=== PATIENT | male | born 1950 | race Caucasian/White ===

== ENCOUNTER 2025-02-03 17:28 | Inpatient (IN) | payer MEDICARE, BC, SELFPAY ==
[2025-02-03] VITALS (8 sets, daily range): BP systolic 161–189; BP diastolic 76–99; PULSE 58–84; RESP 12–18; TEMP 36.3–36.8; O2SAT 91–98; BMI 27.1
--- NOTE | 2025-02-03 17:35 | CTR_ITS ---
PROCEDURE INFORMATION: Exam: CT Head Without Contrast Exam date and time: 02/03/2025 5:48 PM Age: 74 years old Clinical indication: Stroke-like symptoms; Dizziness/giddiness; Additional info: Symptoms of acute stroke TECHNIQUE: Imaging protocol: Computed tomography of the head without contrast. Radiation optimization: All CT scans at this facility use at least one of these dose optimization techniques: automated exposure control; mA and/or kV adjustment per patient size (includes targeted exams where dose is matched to clinical indication); or iterative reconstruction. Other technique: STROKE PROTOCOL was implemented. COMPARISON: No relevant prior studies available. RADIATION DOSE METRICS: Total DLP (mGy-cm): 1120.4 FINDINGS: Brain: Age-related brain parenchymal atrophy. Areas of hypoattenuation in the periventricular and subcortical deep white matter likely on the basis of chronic microvascular ischemic changes. No acute intra cranial hemorrhage. No mass effect or midline shift. No definitive CT evidence of acute territorial infarction. 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 Cerebral ventricles: No ventriculomegaly. Paranasal sinuses: Visualized sinuses are unremarkable. No fluid levels. Mastoid air cells: Visualized mastoid air cells are well aerated. Bones: Intact calvarium. Soft tissues: Unremarkable. CT/CT head thrombolytic [id number] IMPRESSION: No acute intracranial abnormality. Senescent changes. ASSESSMENT: ASPECTS ([place] Stroke Program Early CT Score) is 10.
--- NOTE | 2025-02-03 17:35 | CTR_ITS ---
PROCEDURE INFORMATION: Exam: CTA Head With Contrast, Arteriography Exam date and time: 02/03/2025 5:48 PM Age: 74 years old Clinical indication: Dizziness and giddiness; Additional info: CVA TECHNIQUE: Imaging protocol: Computed tomographic angiography of the head with contrast. Exam focused on the arteries. 3D rendering (Not supervised by radiologist): MIP and/or 3D reconstructed images were created by the technologist. Radiation optimization: All CT scans at this facility use at least one of these dose optimization techniques: automated exposure control; mA and/or kV adjustment per patient size (includes targeted exams where dose is matched to clinical indication); or iterative reconstruction. Contrast material: OMNIPAQUE 350; Contrast volume: 100 ml; Contrast route: INTRAVENOUS (IV); COMPARISON: CT head thrombolytic [id number] 02/03/2025 5:48 PM RADIATION DOSE METRICS: Total DLP (mGy-cm): 759.5 FINDINGS: ANTERIOR CIRCULATION: Right internal carotid artery: Intracranial segment is patent with no significant stenosis. No aneurysm. Right middle cerebral artery: No occlusion or significant stenosis. No aneurysm. Right anterior cerebral artery: No occlusion or significant stenosis. No aneurysm. Left internal carotid artery: Intracranial segment is patent with no significant stenosis. No aneurysm. Left middle cerebral artery: No occlusion or significant stenosis. No aneurysm. Left anterior cerebral artery: No occlusion or significant stenosis. No aneurysm. POSTERIOR CIRCULATION: Right vertebral artery: No occlusion or significant stenosis. No aneurysm. Left vertebral artery: No occlusion or significant stenosis. No aneurysm. Basilar artery: No occlusion or significant stenosis. No aneurysm. Right posterior cerebral artery: There is a moderate to severe stenosis involving the right P1 segment of the right [employer]SH[employer] PROGRAM DIRECTOR. There is a moderate stenosis involving the right distal [employer] PROGRAM DIRECTOR Left posterior cerebral artery: No occlusion or significant stenosis. No aneurysm. Brain: No definite mass, mass effect, or midline shift. Cerebral ventricles: No ventriculomegaly. Bones/joints: Unremarkable. No acute fracture. Soft tissues: Unremarkable. PROCEDURE INFORMATION: Exam: CTA Neck With Contrast Exam date and time: 02/03/2025 5:48 PM Age: 74 years old Clinical indication: Dizziness and giddiness; Additional info: CVA TECHNIQUE: Imaging protocol: Computed tomographic angiography of the neck with contrast. Exam focused on the cervical segments of the vasculature. 3D rendering (Not supervised by radiologist): MIP and/or 3D reconstructed images were created by the technologist. Radiation optimization: All CT scans at this facility use at least one of these dose optimization techniques: automated exposure control; mA and/or kV adjustment per patient size (includes targeted exams where dose is matched to clinical indication); or iterative reconstruction. Contrast material: OMNIPAQUE 350; Contrast volume: 100 ml; Contrast route: INTRAVENOUS (IV); COMPARISON: CT head thrombolytic [id number] 02/03/2025 5:48 PM RADIATION DOSE METRICS: Total DLP (mGy-cm): 759.5 FINDINGS: Right common carotid artery: Proximally 50-60% stenosis involving the right distal common carotid artery. Right internal carotid artery: No stenosis of the extracranial segment. No dissection or occlusion. Right external carotid artery: No occlusion or stenosis of the origin. Left common carotid artery: Approximately 40-50% stenosis involving the left distal common carotid artery. Left internal carotid artery: No stenosis of the extracranial segment. No dissection or occlusion. Left external carotid artery: No occlusion or stenosis of the origin. Right vertebral artery: The right vertebral artery is hypoplastic and terminates at the level of the right PICA. Left vertebral artery: High-grade stenosis involving the left V4 segment of the left vertebral artery. Other arteries: Evaluation of the arteries limited by venous contamination and poor arterial phase imaging. Soft tissues: Normal. No significant soft tissue swelling. Bones/joints: Extensive degenerative changes involve the spine. There is mild anterolisthesis of C3 in respect to C4 secondary to facet arthropathy. There is extensive anterior and posterior osteophyte formation throughout the cervical spine. Diffuse facet arthropathy. Lungs: There are patchy ground-glass opacities involving the visualized portions of the right upper lobe. Esophagus: There is abnormal wall thickening involving the visualized proximal esophagus. CT/CT angio headneck* [id number] IMPRESSION: Moderate to severe stenosis involving the right P1 segment of the right [employer] PROGRAM DIRECTOR. There is a moderate stenosis involving the right distal [employer]SHIP PROGRAM DIRECTOR. IMPRESSION: 1. Moderate stenosis involving the distal right common carotid artery. 2. Mild stenosis involving the left distal common carotid artery. 3. Patchy ground-glass opacities present in the right upper lobe likely infectious or inflammatory in etiology. 4. Proximal esophageal wall thickening present. Clinical correlation for esophagitis recommended REFERENCES: NASCET CRITERIA. The degree of stenosis in the cervical segment of the internal carotid artery is based on NASCET criteria. Normal is no stenosis. Mild is less than 50% stenosis. Moderate is 50-69% stenosis. Severe is 70% to 99% stenosis. Total occlusion is no detectable patent lumen.
--- NOTE | 2025-02-03 17:36 | ECG_ITS ---
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 Measurements Intervals Valentines Rate: 53 P: 55 IA: 180 QRS: 59 QRSD: 104 T: 136 QT: 462 QTc: 434 Interpretive Statements SINUS BRADYCARDIA NONSPECIFIC ST & T-WAVE ABNORMALITY No previous ECG available for comparison Electronically Signed On 02-03-2025 21:29:51 CDT by Jey Swan M.D. [email or web address]
--- NOTE | 2025-02-03 17:36 | W.ED.DIZZY ---
HPI - Dizziness General: Chief Complaint: Dizziness Stated Complaint: weakness Time Seen by Provider: 02/03/25 17:29 Source: patient and EMS Mode of arrival: EMS Limitations: no limitations History of Present Illness: HPI Narrative: 74-year-old male states that he started having dizziness at 10 AM he states that the room has been spinning he has not really been able to walk due to severe dizziness he has also had some nausea and vomiting with that denies any history of stroke or vertigo in the past denies headache or chest pain. Associated symptoms: Reports nausea; Denies chest pain, chills or headache(s) Related Data Allergies Allergy/AdvReac Type Severity Reaction Status Date / Time No Known Allergies Allergy Verified 02/03/25 17:35 Review of Systems Const: Denies: fever(s), chills, body aches or change in appetite Eyes: Denies: blurry vision or eye discomfort ENMT: Denies: throat pain or dental pain Card: Denies: chest pain Resp: Denies: dyspnea GI: Reports: nausea; Denies: abdominal pain or diarrhea Musc: Denies: neck pain or back pain Skin/Breast: Denies: rash Neuro: Reports: vertigo; Denies: headache(s) Physical Exam Const: COMMON NORMALS: patient oriented x3 HENMT: COMMON NORMALS: normocephalic and atraumatic HEAD & SCALP: normocephalic and atraumatic Eye: COMMON NORMALS: Equal, round and reactive pupils present and EOMs intact bilaterally PUPIL: Yes Equal, round and reactive pupils present OTHER: nystagmus when looking right Neck/C-Spine: COMMON NORMALS: full ROM and supple Chest: COMMONS NORMALS: normal inspection of the chest Resp: COMMON NORMALS: normal respiratory effort, No retractions, No use of accessory muscles and clear to auscultation bilaterally AUSCULTATION: clear to auscultation bilaterally Cardio: COMMON NORMALS: regular rate, regular rhythm and No murmurs present (Cardio) RATE: regular rate RHYTHM: regular rhythm GI: COMMON NORMALS: Normal to inspection, nondistended, normoactive bowel sounds present, Soft to palpation, non-tender and no masses PALPATION: Yes Soft to palpation Extremity: COMMON NORMALS: normal to inspection and full ROM Neuro: COMMON NORMALS: patient oriented x3, moves all extremities and no focal motor deficits CRANIAL NERVES: Yes CN normal except as noted SPEECH: speech normal GAIT: Yes Ataxic gait present MOTOR EXAM: 5/5 motor strength present throughout Psych: COMMON NORMALS: mental status grossly normal, Normal thought process present and cooperative THOUGHT PROCESS: Normal thought process present Skin: COMMON NORMALS: no rashes or lesions noted and no wounds GENERAL SKIN EXAM: no rashes or lesions noted Course Vital Signs: Vital signs: Vital Signs Temperature 98.3 F 02/03/25 17:31 Pulse Rate 81 02/03/25 19:04 Respiratory Rate 16 02/03/25 17:31 Blood Pressure 172/93 02/03/25 19:04 Pulse Oximetry 91 02/03/25 19:04 Oxygen Delivery Me thod Room Air 02/03/25 19:04 MDM - Dizziness Medical Decision Making Patient presents here with vertigo symptoms have not improved here is quite ataxic CT along with CTA are normal his last known well was 10 AM he is not a candidate for lytics due to timing. Will admit at this time for his vertigo to rule out a posterior stroke Medical Records I reviewed the patient's medical records. Lab Data I reviewed the patient's lab results. 02/03/25 17:42 02/03/25 17:[address] 02/03/25 17:35 IMPRESSION: No acute intracranial abnormality. Senescent changes. ASSESSMENT: ASPECTS ([place] Stroke Program Early CT Score) is 10. ADDENDUM: 02/03/25 1812 THIS REPORT CONTAINS FINDINGS THAT MAY BE CRITICAL TO PATIENT CARE. The findings were verbally communicated via telephone conference with ZACHARY ROBLERO at 6:11 PM CDT on 02/03/2025. The findings were acknowledged and understood. ADDENDUM: 02/03/25 1834 The sagittal reconstructions were reviewed. Chest X-Ray 02/03/25 18:06 IMPRESSION: No acute findings. Laboratory Results WBC 12.00 10^3/uL (3.29-11.43) H 02/03/25 17:42 RBC 4.72 10^6/uL (3.85-5.65) 02/03/25 17:42 Hgb 14.40 g/dL (11.27-16.99) 02/03/25 17:42 Hct 42.7 % (37-53) 02/03/25 17:42 MCV 90.5 fl (82-101) 02/03/25 17:42 MCH 30.5 pg (27-33) 02/03/25 17:42 MCHC 33.7 g/dL (30-55) 02/03/25 17:42 RDW 11.5 % (12.1-15.1) L 02/03/25 17:42 Plt Count 180 10^3/cmm (157-399) 02/03/25 17:42 MPV 10.0 fL (7.4-10.4) 02/03/25 17:42 Neut % (Auto) 88.9 % 02/03/25 17:42 Lymph % (Auto) 6.9 % 02/03/25 17:42 [place] % (Auto) 3.6 % 02/03/25 17:42 Eos % (Auto) 0.0 % 02/03/25 17:42 Baso % (Auto) 0.3 % 02/03/25 17: Neut # (Auto) 10.66 10^3/uL (1.8-7.7) H 02/03/25 17:42 Lymph # (Auto) 0.8 10^3/uL (0.8-4.8) 02/03/25 17:42 [place] # (Auto) 0.4 10^3/uL (0.2-0.9) 02/03/25 17:42 Eos # (Auto) 0.0 10^3/uL (0.0-0.8) 02/03/25 17:42 Baso # (Auto) 0.0 10^3/uL (0.0-0.1) 02/03/25 17: Nucleated RBC % (auto) 0 % 02/03/25 17: Nucleated RBCs # 0.0 /100WBC 02/03/25 17:42 PT 13.10 SECONDS (12.1-14.9) 02/03/25 17:42 INR 0.93 (0.8-1.2) 02/03/25 17:42 APTT 24.8 SECONDS (23.9-36.7) 02/03/25 17:42 Sodium 138 mmol/L (136-145) 02/03/25 17:42 Potassium 4.4 mmol/L (3.5-5.1) 02/03/25 17:42 Chloride 102 mmol/L (98-107) 02/03/25 17:42 Carbon Dioxide 23 mmol/L (22-29) 02/03/25 17:42 Anion Gap 17.4 (5-19) 02/03/25 17:42 BUN 14 mg/dL (8-23) 02/03/25 17:42 Creatinine 0.6 mg/dL (0.7-1.2) L 02/03/25 17:42 GFR Calculation Not Reportable 02/03/25 17:42 Glucose 200 mg/dL (65-115) H 02/03/25 17:42 POC Glucose 194 mg/dL (70-110) H 02/03/25 17:40 Calculated Osmolality 292 mOsm/kg (285-295) 02/03/25 17:42 Calcium 9.4 mg/dL (8.5-10.5) 02/03/25 17:42 Total Bilirubin 0.7 mg/dL (0.15-1.2) 02/03/25 17:42 AST 19 U/L (0-40) 02/03/25 17:42 ALT 11 U/L (0-41) 02/03/25 17:42 Alkaline Phosphatase 75 U/L (40-130) 02/03/25 17:42 Total Protein 7.3 g/dL (6.6-8.7) 02/03/25 17:42 Albumin 4.0 g/dL (3.5-5.2) 02/03/25 17:42 Globulin 3.3 g/dL (1.3-4.6) 02/03/25 17:42 Urine Color Yellow (Yellow) 02/03/25 18:30 Urine Appearance Clear (CLEAR) 02/03/25 18:30 Urine pH 7 (5-7) 02/03/25 18:30 Ur Specific [place] 1.010 (1.005-1.030) 02/03/25 18:30 Urine Protein 1+ (Negative) H 02/03/25 18:30 Urine Glucose (UA) 1+ (Normal) H 02/03/25 18:30 Urine Ketones Negative (Negative) 02/03/25 18:30 Urine Blood Neg (Negative) 02/03/25 18:30 Urine Nitrate Negative (Negative) 02/03/25 18:30 Urine Bilirubin Neg (Negative) 02/03/25 18:30 Urine Urobilinogen Norm mg/dL (Negative) 02/03/25 18:30 Ur Leukocyte Esterase Negative (Negative) 02/03/25 18:30 Urine RBC 0-2 /hpf (0-2) 02/03/25 18:30 Urine WBC 11-20 /hpf (0-5) H 02/03/25 18:30 Ur Squamous Epith Cells 0-5 /hpf (0-5) 02/03/25 18:30 Amorphous Sediment Not Reportable 02/03/25 18:30 Urine Bacteria None seen /hpf (NONE) 02/03/25 18:30 Hyaline Casts 0.40 /lpf 02/03/25 18:30 Urine Opiates Screen Negative ng/mL (Negative) 02/03/25 18:30 Ur Barbiturates Screen Negative ng/mL (Negative) 02/03/25 18:30 Ur Phencyclidine Scrn Negative ng/mL (Negative) 02/03/25 18:30 Ur Amphetamines Screen Negative ng/mL (Negative) 02/03/25 18:30 U Benzodiazepines Scrn Negative ng/mL (Negative) 02/03/25 18:30 Urine Cocaine Screen Negative ng/mL (Negative) 02/03/25 18:30 U Marijuana (THC) Screen Negative ng/mL (Negative) 02/03/25 18:30 All radiology interpretation(s) finalized by discharge EKG Data EKG 1: I personally reviewed and interpreted this EKG as follows: EKG interpretation date: 02/03/25 EKG interpretation time: 17:36 Interpretation: sinus kari hr [address] elevation qrs 104 qtc 444 Discharge Plan Discharge Condition: Stable Print Language: Pakistani Coding Level of Care Code ED Stockroom Associate for g Fwd NIH stroke score NIHSS Level Of Consciousness - 1a: 0 Level Of Consciousness Questions - 1b: Both Correct Level Of Consciousness Commands - 1c: Both Correct Best Gaze - 2: Normal Visual Moralez - 3: No Visual Loss Facial Palsy - 4: Normal Motor Arm Right - 5: No Drift Motor Arm Left - 5: No Drift Motor Leg Right - 6: No Drift Motor Leg Left - 6: No Drift Limb Ataxia - 7: Present In One Limb Sensory - 8: Normal Best Language - 9: No Aphasia Dysarthia - 10: Normal Extinction And Inattention - 11: 0 Score Total Score: 1
[2025-02-03 17:44] LABS: Glucose Point of Care 194 mg/dL (70-110)
[2025-02-03 17:48] LABS: Basophils % 0.3 %; Hematocrit 42.7 % (37-53); Lymphocytes # 0.8 10^3/uL (0.8-4.8); Lymphocytes % 6.9 %; Mean Corpuscular HGB Conc 33.7 g/dL (30-55); Mean Corpuscular Hemoglobin 30.5 pg (27-33); Mean Corpuscular Volume 90.5 fl (82-101); Monocytes # 0.4 10^3/uL (0.2-0.9); Monocytes % 3.6 %; Neutrophils # 10.66 10^3/uL (1.8-7.7); Neutrophils % 88.9 %; Nucleated Red Blood Cells % 0 %; Platelet Count 180 10^3/cmm (157-399); Red Blood Count 4.72 10^6/uL (3.85-5.65); Red Cell Distribution Width 11.5 % (12.1-15.1)
--- NOTE | 2025-02-03 17:53 | PC.NURSE ---
PT FSBS 194.
[2025-02-03 18:02] LABS: INR 0.93 (0.8-1.2)
[2025-02-03] MEDS: iohexol 350 mg/mL 500 mL Btl (per mL) IV (18:02)
[2025-02-03 18:03] LABS: Partial Thromboplastin Time 24.8 SECONDS (23.9-36.7)
[2025-02-03 18:06] LABS: Alanine Aminotransferase 11 U/L (0-41); Alkaline Phosphatase 75 U/L (40-130); Blood Urea Nitrogen 14 mg/dL (8-23); Calcium 9.4 mg/dL (8.5-10.5); Carbon Dioxide 23 mmol/L (22-29); Chloride 102 mmol/L (98-107); Creatinine Clr Calc Pharmacy 92.3088; Globulin 3.3 g/dL (1.3-4.6); Glucose 200 mg/dL (65-115); Osmolality Calculated 292 mOsm/kg (285-295); Sodium 138 mmol/L (136-145); Total Bilirubin 0.7 mg/dL (0.15-1.2); Total Protein 7.3 g/dL (6.6-8.7)
--- NOTE | 2025-02-03 18:06 | XRR_ITS ---
PROCEDURE INFORMATION: Exam: XR Chest Exam date and time: 02/03/2025 6:13 PM Age: 74 years old Clinical indication: Other: Dizzy TECHNIQUE: Imaging protocol: Radiologic exam of the chest. Views: 1 view. COMPARISON: CT angio headneck* [id number] 02/03/2025 5:48 PM FINDINGS: Lungs: Unremarkable. No consolidation. Pleural spaces: Unremarkable. No pleural effusion. No pneumothorax. Heart/Mediastinum: Unremarkable. No cardiomegaly. Bones/joints: Unremarkable. XR/XR chest 1V portable [id number] IMPRESSION: No acute findings.
[2025-02-03] MEDS: ondansetron 2 mg/ML SDV 2 mL 4 MG IVP (18:11)
[2025-02-03] MEDS: meclizine 25 mg tablet 50 MG PO (18:11)
[2025-02-03 18:20] LABS: Anion Gap 17.4 (5-19); Aspartate Amino Transferase 19 U/L (0-40); Potassium 4.4 mmol/L (3.5-5.1)
[2025-02-03 18:40] LABS: Bacteria Urine None Seen /hpf; RBC Urine 0-2 /hpf (0-2); Squamous Epithelial Cell Urine 0-5 /hpf (0-5)
[2025-02-03] MEDS: diazePAM 2 mg Tablet PO (18:41)
[2025-02-03] MEDS: aspirin 81 mg Chew Tablet 324 MG PO (18:42)
[2025-02-03 18:44] LABS: Amphetamines Screen Urine Negative (Negative); Barbiturates Screen Urine Negative (Negative); Benzodiazepines Screen Urine Negative (Negative); Cocaine Screen Urine Negative (Negative); Opiate Screen Urine Negative (Negative); PCP Screen Urine Negative (Negative); THC Screen Urine Negative (Negative)
[2025-02-03 18:45] LABS: Add Urine Culture? No; Add Urine Microscopic? YES; Bilirubin Urine Neg (Negative); Blood Urine Neg (Negative); Glucose Urine UA 1+ (Normal); Ketones Urine Negative (Negative); Leukocyte Esterase Urine Negative (Negative); Nitrate Urine Negative (Negative); Protein Urine 1+ (Negative); Urine Appearance Clear (CLEAR); Urine Color Yellow (Yellow); Urobilinogen Urine Norm (Negative); pH Urine 7 (5-7)
--- NOTE | 2025-02-03 19:48 | P.HP_ITS ---
Providers/Chief Complaint 2 Chief Complaint: weakness History of Present Illness Carlos Cooper is a 74 year old male with a past medical history of hypertension, hyperlipidemia, GERD, history of TIA who presents [facility] for dizziness. Patient tells me that he is originally from [place], he is a solo truck driver, he was dropping off a load that about at 10 AM, he suddenly felt dizzy, he tells me that he was driving at the time, he pulled over the side of the road, denies any blurry vision, no nausea, no vomiting, did have a slight headache, no neck pain, no paresthesias, no focal weakness, no facial droop, no slurring of his words, he tells me he he was able to drop all of his load, but continued to have dizziness, so he came to the ER for evaluation, initial head CT no acute bleed, patient was out of the window for tPA, he continues to complain of dizziness, unsteadiness on his feet, no nausea, no vomiting, currently he is NIH stroke scale is 2, CTA head and neck CT/CT angio headneck* [id number] IMPRESSION: Moderate to severe stenosis involving the right P1 segment of the right [employer]TR[employer] OFFICE. There is a moderate stenosis involving the right distal [employer]ICE. IMPRESSION: 1. Moderate stenosis involving the distal right common carotid artery. 2. Mild stenosis involving the left distal common carotid artery. 3. Patchy ground-glass opacities present in the right upper lobe likely infectious or inflammatory in etiology. 4. Proximal esophageal wall thickening present. Clinical correlation for esophagitis recommended - Spoken to ER provider, Dr. Canas, speaking to [facility] neurology about CTA head and neck findings with patient symptomatology -Patient denies any dizziness upon changing head position, denies the room spinning around him, Review of Systems 2 Const: Denies: fever(s) or chills Eyes: Denies: change in vision or blurry vision Card: Denies: chest pain Resp: Denies: dyspnea GI: Denies: abdominal pain Neuro: Reports: headache(s), difficulty walking and dizziness; Denies: numbness in extremities, weakness in extremities, sensory changes, lack of coordination, frequent falls, vertigo, Slurred speech present, difficulty communicating thoughts, seizure-like activity or involuntary movements Endo: Denies: polyuria Medications/Allergies Allergies Allergy/AdvReac Type Severity Reaction Status Date / Time No Known Allergies Allergy Verified 02/03/25 17:35 PFSH Acute 2 PFSH: Medical History (Updated 02/03/25 @ 19:54 by Luaks Jean MD) HLD (hyperlipidemia) HTN (hypertension) with goal to be determined Social History (Updated 02/03/25 @ 19:53 by Lukas Jean MD) Smoking and tobacco/nicotine status: never used tobacco/nicotine Alcohol intake: never Substance/Drug Use: never Vitals/I&O/Wt Last Vital Signs Temp 98.3 F 02/03/25 17:31 Pulse 79 02/03/25 19:32 Resp 17 02/03/25 19:32 BP 166/99 02/03/25 19:32 Pulse Ox 98 02/03/25 19:32 O2 Del Method Room Air 02/03/25 19:32 Weight last 48 hrs Weight 88.451 kg Physical Exam 2 Const: COMMON NORMALS: no acute distress and patient oriented x3 HENMT: COMMON NORMALS: normocephalic HEAD & SCALP: normocephalic Neck/C-Spine: COMMON NORMALS: no JVD Resp: COMMON NORMALS: normal respiratory effort, No retractions, No use of accessory muscles and clear to auscultation bilaterally AUSCULTATION: clear to auscultation bilaterally Cardio: COMMON NORMALS: no JVD, regular rate, regular rhythm, S1 normal heart sound present and S2 normal heart sound present RATE: regular rate RHYTHM: regular rhythm HEART SOUNDS: S1 normal heart sound present and S2 normal heart sound present GI: COMMON NORMALS: Normal to inspection, nondistended, normoactive bowel sounds present, Soft to palpation and non-tender Extremity: COMMON NORMALS: no calf tenderness and no pedal edema Neuro: COMMON NORMALS: patient oriented x3, CN's II-XII intact bilaterally, moves all extremities and no focal motor deficits OTHER: Positive cerebellar signs Psych: COMMON NORMALS: mental status grossly normal Data 02/03/25 17:42 02/03/25 17:42 A&P Assessment and plan (1) Dizziness: Plan Dizziness - Concern for posterior circulation stroke - Other possibilities is benign positional vertigo, but dizziness is not associated with head position - CT head no acute findings - CTA head and neck CT/CT angio headneck* [id number] IMPRESSION: Moderate to severe stenosis involving the right P1 segment of the right [employer]ICE. There is a moderate stenosis involving the right distal [employer]. IMPRESSION: 1. Moderate stenosis involving the distal right common carotid artery. 2. Mild stenosis involving the left distal common carotid artery. 3. Patchy ground-glass opacities present in the right upper lobe likely infectious or inflammatory in etiology. 4. Proximal esophageal wall thickening present. Clinical correlation for esophagitis recommended -ER provider will discuss CTA head and neck findings with [facility] neurology Plan - Telemetry monitoring - Cardiac echo - PT OT - Speech therapy eval - Aspirin, statin -IV fluids - Will allow for permissive hypertension - MRI brain - Code, DNR, but okay with elective intubation if required - Lovenox for DVT prophylaxis PDMP PDMP Reviewed: Not Reviewed Attestations 2 Medical Necessity Statement*: Patient requires hospitalization, outpatient observation, for dizziness, concerns for posterior circulation stroke Coding Level of Care Code Acute Code for Chg Fwd Diagnoses Dizziness R42
--- NOTE | 2025-02-03 21:05 | PC.NURSE ---
patient come to floor from ER, patient stood up from chair, very unsteady on his feet. patient was soiled in urine. hospital gown put on and dirty clothes placed in a plastic bag. patient wallet, a black hair comb, 2 ink pens, $1.89 in change, $6 in one dollar bills, 2 $5 bills, 3 $20 bills, 2 $10 bills, 23 cards inside his wallet, some were buisness cards and the others were debit and credit cards. patient assessment done, bed alarm turned on because pateint states he will get up and go to the bathroom, nurse asked him not to get up on his own because he is very unsteady on his feet, he is admitted with vertigo. patient is alert and oriented.
[2025-02-03 21:35] LABS: Chol HDL Ratio 4.43 mg/dL (1.0-5.00); Cholesterol 204 mg/dL (0-200); HDL Cholesterol 46 mg/dL (60-100); LDL Cholesterol Calculated 117 mg/dL (50-129); LDL HDL Ratio 2.54 RATIO (0.00-3.22); Thyroid Stimulating Hormone 0.88 uIU/mL (0.27-4.20); Triglycerides 204 mg/dL (0-150)
[2025-02-03 22:03] LABS: Estmated Average Glucose 197; Hemoglobin A1C 8.5 % (4.0-6.0)
[2025-02-03] MEDS: pantoprazole 40 mg SDV IVP (22:22)
[2025-02-03] MEDS: atorvastatin 40 mg Tablet PO (22:22)
[2025-02-03] MEDS: clopidogrel 300 mg Tablet PO (22:22)
[2025-02-03] MEDS: sodium chloride 0.9% 1,000 ML 75 ML IV (22:23)
[2025-02-03] MEDS: enoxaparin 40 mg/0.4 mL Syringe SUBCUT (22:23)
[2025-02-04] VITALS (8 sets, daily range): BP systolic 147–163; BP diastolic 50–89; PULSE 51–84; RESP 15–18; TEMP 36.6–38; O2SAT 92–94
--- NOTE | 2025-02-04 08:03 | PC.PHAR ---
Pt has 3 medications found at [facility] in [facility] [place]. [phone]. They are as follows: Lisinopril 10mg daily last fill 06/13/24 90ds Metformin ER 500mg bid last fill 04/10/24 90ds Rosuvastatin 5mg daily last fill 04/10/24 90ds Pt states he can't take any of these medications because they make him too tired, so he takes no medications at this time.
--- NOTE | 2025-02-04 08:34 | PC.CHAP ---
Pastoral Care Encounter/Spiritual Assessment Type of Contact [] Declined net developer programmer visit [] Patient/Family/Request visit [] Outpatient visit [] Follow-up visit [] Physician referral [] Code/Alert [x] Routine visit [] Staff referral [] Actively dying [] Patient sleeping [] Family support [] [] Out of room [] Palliative care [] [] Receiving care in room [] Pre-surgical visit [] Trauma [] Long length of stay [] ICU visit [] Other: Relational/Emotional Strength [x] Patient feels connected with others/family/visitors/staff [] Distress [] Loneliness/isolation [] Abandonment Spirituality of Patient [x] Person of Leidy [] Attends Church of their Leidy [x] Believes in Prayer [] Reads Bible or Adventism materials [] There are Spiritual issues to be addressed Monkey Trainer Interventions [x] Prayer [x] Active listening [] Non-anxious presence [x] Spiritual/emotional support [] Crisis/trauma care [] Spiritual counseling [] Bereavement support [] Provided bereavement packet [] Provided Bible/devotional materials [] Provided toy/stuffed animal, coloring book to patient or family member [] Provided Communion [] Anointing/Philipp [] Salvation [x] Completed spiritual assessment [] Other: Impact on Illness or Injury [] Angry [] Fearful [] Anxious [] Often cries [] Exhaustion [] Unable to work [] Unable to attend buddhist [] Unable to walk/stand [] Unable to read [] Unable to drive [] Unable to eat/drink [] Unable to sleep [] Unable to be with family [] Patient intubated [] Other: Summary Time spent with patient 5 min
--- NOTE | 2025-02-04 08:51 | PC.NURSE ---
administrative support coordinator rounds- patient resting with eyes closed, left stroke education book at bedside
[2025-02-04] MEDS: clopidogrel 75 mg Tablet PO (09:17)
[2025-02-04] MEDS: amoxicillin-clav 875-125 mg Tablet 1 TAB PO ×2 (09:17→17:33)
[2025-02-04] MEDS: azithromycin 250 mg Tablet 500 MG PO (09:17)
[2025-02-04] MEDS: aspirin 81 mg EC Tablet PO (09:17)
--- NOTE | 2025-02-04 10:04 | CT_ITS ---
WS: [id number] CT HEAD NONCONTRAST HISTORY: STROKE ALERT TECHNIQUE: Contiguous axial imaging performed through the brain. Bone and soft tissue windows. Sagittal and coronal reformats reviewed. All CT scans at [facility] use at least one of these dose optimization techniques: automated exposure control; mA and/or kV adjustment per patient size (includes targeted exams where dose is matched to clinical indication); or iterative reconstruction. DLP: 1157.58 mGy.cm COMPARISON: 02/03/2025 No acute intracranial hemorrhage, midline shift or mass effect. Moderate atrophy and small vessel disease. Bilateral lacunar infarcts. 1 of these infarcts is in the RIGHT basal ganglia and the LEFT infarct is in the posterior limb of the internal capsule. Volume loss in the cerebellum. LEFT cerebellar lacunar infarct versus prominent sulcus. Ventricles: Normal size with no hydrocephalus. No inferior displacement of the cerebellar tonsils. Paranasal sinuses: Mucoperiosteal thickening in the LEFT ethmoid air cells. No air-fluid levels within the sinuses. Mastoid air cells: Well pneumatized. Calvarium and scalp: Skull is intact with no soft tissue edema or swelling. Extensive calcification of the intracranial carotid arteries and the distal vertebral arteries, LEFT greater than RIGHT. CT/CT head wo con* [id number] IMPRESSION: 1. No acute intracranial hemorrhage or edema. 2. Stable small vessel ischemic disease and lacunar infarcts. 3. Intracranial carotid and vertebral artery atherosclerotic plaque.
--- NOTE | 2025-02-04 10:55 | PC.NURSE ---
0900 - RN assesses patient. While completing assessment, very mild weakness noted to left hand and foot. Pt able to hold both arm and leg off of the bed for 10 seconds. Clear speech noted. Alert and orientated. No slurring of speech. Pt states the mild weakness is from a TIA approx. 7 years ago. Pt does state that his dizziness has improved, but he is having double vision. Visual bauer intact. Able to follow fingers without delay, but reports seeing double the amount of fingers RN is holding up. 0925 - RN asks Kenny, PT, to assess pt d/t mild weakness noted on left side. Explains visual changes. Kenny quickly goes to assess patient. Approx 1000 - RN explains visual changes to Dr. Balderas, as well as very mild weakness. At this time Kenny completes his assessment and explains to RN and Dr. Balderas that pt is strong, but impulsive and overcompensates on the left side. 1004 - STAT CT ordered, taken by SAVANNA Duarte.
[2025-02-04 11:31] LABS: Glucose Point of Care 134 mg/dL (70-110)
--- NOTE | 2025-02-04 14:13 | MRR_ITS ---
PROCEDURE INFORMATION: Exam: MR Head Without Contrast Exam date and time: 02/04/2025 4:52 PM Age: 74 years old Clinical indication: Dizziness, unsteady gait, double vision; Additional info: Stroke TECHNIQUE: Imaging protocol: Magnetic resonance imaging of the head without contrast. COMPARISON: CT head wo con* [id number] 02/04/2025 10:18 AM FINDINGS: Brain: There is prominent chronic periventricular white matter ischemic change. There is no evidence of mass effect, hemorrhage or infarct. Cerebral ventricles: Normal. No ventriculomegaly. Bones: Unremarkable. Paranasal sinuses: Normal as visualized. No acute sinusitis. Mastoid air cells: Normal as visualized. No mastoid effusion. Orbital cavities: Unremarkable. Soft tissues: Unremarkable. MR/MR head wo con* [id number] IMPRESSION: 1. No acute findings. 2. Chronic white matter ischemic changes noted
--- NOTE | 2025-02-04 14:16 | P.PN_ITS ---
Subjective 2 Subjective: Admitted overnight. Patient had worsening visual changes today. States he is not having any weakness in his arms or legs but does feel as if his eyesight is crossed. Denies any headache. New symptoms started around 4 hours ago around 7 AM. Vitals/I&O/Wt Last Vital Signs Temp 98.2 F 02/04/25 11:08 Pulse 53 L 02/04/25 11:08 Resp 17 02/04/25 11:08 BP 158/63 02/04/25 11:08 Pulse Ox 94 02/04/25 11:08 O2 Del Method Room Air 02/04/25 11:08 02/03/25 02/04/25 02/04/25 22:59 06:59 14:59 Intake Total 100 / 100 30 / 130 356 / 356 Output Total 200 / 200 Balance -100 / -100 30 / -70 356 / 356 Weight last 48 hrs Weight 81.601 kg Weight 81.193 kg Weight 88.451 kg Physical Exam 2 Const: COMMON NORMALS: no acute distress and patient oriented x3 HENMT: COMMON NORMALS: normocephalic HEAD & SCALP: normocephalic Neck/C-Spine: COMMON NORMALS: no JVD Resp: COMMON NORMALS: normal respiratory effort, No retractions, No use of accessory muscles and clear to auscultation bilaterally AUSCULTATION: clear to auscultation bilaterally Cardio: COMMON NORMALS: no JVD, regular rate, regular rhythm, S1 normal heart sound present and S2 normal heart sound present RATE: regular rate RHYTHM: regular rhythm HEART SOUNDS: S1 normal heart sound present and S2 normal heart sound present GI: COMMON NORMALS: Normal to inspection, nondistended, normoactive bowel sounds present, Soft to palpation and non-tender PALPATION: Yes Soft to palpation Extremity: COMMON NORMALS: no calf tenderness and no pedal edema Neuro: COMMON NORMALS: patient oriented x3, CN's II-XII intact bilaterally, moves all extremities and no focal motor deficits OTHER: Positive cerebellar signs Psych: COMMON NORMALS: mental status grossly normal Data 02/03/25 17:42 02/03/25 17:42 Micro: Microbiology 02/04/25 09:10 Blood Culture - Preliminary Blood SPECIMEN COLLECTED 02/04/25 09:15 Blood Culture - Preliminary Blood SPECIMEN COLLECTED A&P Assessment and plan (1) Stroke-like symptoms: Concern for TIA versus acute stroke. No further dizziness right now. Does complain of changes in his visual field which are new over the last [address] head done does not show any acute changes. Symptoms resolving by the time patient was seen. Permissible hypertension. MRI brain. PT/OT/speech evaluation. Check A1c, lipid panel. Check echocardiogram with bubble study. Aspirin 81 mg daily, high intensity statin, Plavix 75 mg daily. (2) Dizziness: (3) Type 2 diabetes mellitus: Noncompliant. A1c more than 8. Insulin sliding scale. Patient would benefit from OHA on discharge. (4) HTN (hypertension) with goal to be determined: Permissible hypertension for today. Long-term goal less than 140/90 mmHg. Will start on antihypertensive accordingly. (5) HLD (hyperlipidemia): (6) Pneumonia: Seen on CT head. Patient complains of cough. Denies any fever. Remains on room air. Cannot rule out mild aspiration. Start on Augmentin twice daily for 5 days, azithromycin 5 mg daily for 3 days. Check blood culture. Sputum culture. (7) Bradycardia: Seen on telemetry. Gives history of bradycardia in the past. Echocardiogram as above. Plan CODE STATUS: Limited resuscitation. Lovenox for DVT prophylaxis Protonix OPD prophylaxis Carb consistent diet Discharge plan: Patient is from [place]. Lives with his . Is a parcel post truck driver by profession. Discussed in detail with the patient that it would not be appropriate to drive while he improves or his approved to drive by neurologist. He is agreeable. Plan to go home with possible home health versus acute care at [place]. PDMP PDMP Reviewed: Not Reviewed Attestations 2 Medical Necessity Statement*: Carlos Masood Cooper is being changed to inpatient status as stay will now exceed 2 midnights. Ongoing hospital care is necessary for management of recurrent TIAs versus stroke, hypertension, type of diabetes mellitus while safe discharge planning is sought Diagnoses Stroke-like symptoms R29.90 Dizziness R42 Type 2 diabetes mellitus E11.9 HTN (hypertension) with goal to be determined I10 HLD (hyperlipidemia) E78.5 Pneumonia J18.9 Bradycardia R00.1
--- NOTE | 2025-02-04 14:23 | USCV_ITS ---
Carlos Cooper Age: 74 Gender: M : 1950 Exam Date: 02/04/2025 15:01 Ordering Phys: Carson Balderas MD Technologist: [place] [facility] [place]: cva BP: 123 / 72 HR: 103 Rhythm: Sinus Technical Quality: Adequate MEASUREMENTS (Male / Female) Normal Values 2D ECHO LV Diastolic Diameter PLAX 4.1 cm 4.2 - 5.9 / 3.9 - 5.3 cm IVS Diastolic Thickness 1.2 cm 0.6 - 1.0 / 0.6 - 0.9 cm IVS Systolic Thickness 1.8 cm LVPW Diastolic Thickness 1.4 cm 0.6 - 1.0 / 0.6 - 0.9 cm LVPW Systolic Thickness 1.7 cm LVOT Diameter 2.2 cm LV Ejection Fraction 2D Teich 65.3 % LV Ejection Fraction MOD 4C 72.3 % LV Ejection Fraction MOD 2C 63.4 % LV Ejection Fraction 2C AL 63.2 % LA Diameter 3.5 cm RA Systolic Volume 4C AL 19.4 ml RA Systolic Volume 4C MOD 17.9 ml Aorta at Sinotubular Diameter 3.3 cm M-MODE LA Ao Ratio MM 1.0 AV Cusp Separation MM 3.3 cm DOPPLER AV Peak Velocity 142.0 cm/s LVOT Peak Velocity 116.0 cm/s AV Area Cont Eq vti 4.1 cm squared AV Area Cont Eq pk 3.2 cm squared MV Peak Velocity 124.0 cm/s MV Area PHT 3.1 cm squared Mitral E to A Ratio 0.6 TV Peak Velocity 150.0 cm/s TR Peak Velocity 158.0 cm/s TR Peak Gradient 10.0 mmHg TV Peak E Velocity 96.0 cm/s PV Peak Velocity 130.0 cm/s FINDINGS Left Ventricle Normal left ventricular size and systolic function, EF 65%.mild left ventricular hypertrophy. Grade I/IV diastolic dysfunction (abnormal relaxation filling pattern), normal to mildly elevated filling pressures. Right Ventricle The right ventricle is normal in size and function. Right Atrium The right atrium is normal in size. Left Atrium Normal left atrial size. Mitral Valve Trace mitral valve regurgitation. Aortic Valve No gross abnormalities noted Tricuspid Valve No gross abnormalities noted. Pulmonic Valve No gross abnormalities noted Pericardium Normal pericardium without effusion. Aorta Normal aortic annulus size. IVC Normal inferior vena cava. CONCLUSIONS Normal left ventricular size and systolic function, EF 65%.mild left ventricular hypertrophy. Grade I/IV diastolic dysfunction (abnormal relaxation filling pattern), normal to mildly elevated filling pressures. Trace mitral valve regurgitation. There is no pericardial effusion. There are no intracardiac masses. No similar previous studies are available for comparison Dr Jey Swan MD [facility] (Electronically Signed) Final Date: 04 February 2025 21:56 S
[2025-02-04 17:18] LABS: Glucose Point of Care 263 mg/dL (70-110)
[2025-02-04] MEDS: insulin lispro 100 unit/1 mL SUBCUT ×2 (17:33→21:27)
[2025-02-04] MEDS: pantoprazole 40 mg SDV IVP (20:39)
[2025-02-04] MEDS: atorvastatin 40 mg Tablet PO (20:39)
[2025-02-04] MEDS: enoxaparin 40 mg/0.4 mL Syringe SUBCUT (20:39)
[2025-02-04 20:57] LABS: Glucose Point of Care 148 mg/dL (70-110)
[2025-02-05] VITALS: BP 141/80; PULSE 60; RESP 18; TEMP 36.8; O2SAT 91
[2025-02-05 05:00] VITALS: BP 157/82; PULSE 51; RESP 16; TEMP 36.8; O2SAT 94
[2025-02-05 06:00] VITALS: PULSE 46
[2025-02-05 06:11] LABS: Basophils # 0.1 10^3/uL (0.0-0.1); Basophils % 0.6 %; Eosinophils % 0.3 %; Hematocrit 41.6 % (37-53); Lymphocytes # 2.7 10^3/uL (0.8-4.8); Lymphocytes % 20.5 %; Mean Corpuscular HGB Conc 33.2 g/dL (30-55); Mean Corpuscular Hemoglobin 30.1 pg (27-33); Mean Corpuscular Volume 90.6 fl (82-101); Mean Platelet Volume 9.9 fL (7.4-10.4); Monocytes # 1.3 10^3/uL (0.2-0.9); Monocytes % 9.5 %; Neutrophils % 68.6 %; Nucleated Red Blood Cells % 0 %; Platelet Count 166 10^3/cmm (157-399); Red Blood Count 4.59 10^6/uL (3.85-5.65); Red Cell Distribution Width 11.8 % (12.1-15.1); White Blood Count 13.26 10^3/uL (3.29-11.43)
[2025-02-05 06:24] LABS: Glucose Point of Care 139 mg/dL (70-110)
[2025-02-05 06:27] LABS: Alanine Aminotransferase 8 U/L (0-41); Albumin Level 3.6 g/dL (3.5-5.2); Alkaline Phosphatase 67 U/L (40-130); Anion Gap 15.6 (5-19); Aspartate Amino Transferase 16 U/L (0-40); Blood Urea Nitrogen 18 mg/dL (8-23); Calcium 8.8 mg/dL (8.5-10.5); Carbon Dioxide 24 mmol/L (22-29); Chloride 104 mmol/L (98-107); Creatinine Clr Calc Pharmacy 89.7724; Glucose 116 mg/dL (65-115); Osmolality Calculated 293 mOsm/kg (285-295); Potassium 3.6 mmol/L (3.5-5.1); Sodium 140 mmol/L (136-145); Total Bilirubin 1.2 mg/dL (0.15-1.2); Total Protein 6.6 g/dL (6.6-8.7)
[2025-02-05 07:40] VITALS: BP 145/74; PULSE 48; RESP 17; TEMP 36.5; O2SAT 94
[2025-02-05] MEDS: amoxicillin-clav 875-125 mg Tablet 1 TAB PO (09:14)
[2025-02-05] MEDS: azithromycin 250 mg Tablet 500 MG PO (09:14)
[2025-02-05] MEDS: aspirin 81 mg EC Tablet PO (09:14)
[2025-02-05] MEDS: clopidogrel 75 mg Tablet PO (09:14)
[2025-02-05] MEDS: acetaminophen 325 mg Tablet 650 MG PO (09:26)
--- NOTE | 2025-02-05 10:35 | P.DS_ITS ---
Discharge Providers Date of Admission: 02/04/25 10:19 Date of Discharge: February 05, 2025 Attending Provider at Admission: Lukas Jean MD Attending Provider at Discharge: Carson Balderas MD Consults: Teleneurology Diagnoses at Discharge Discharge Diagnosis (1) Stroke-like symptoms: Status: Acute (2) Dizziness: Status: Acute (3) Type 2 diabetes mellitus: Status: Acute (4) HTN (hypertension) with goal to be determined: Status: Acute (5) HLD (hyperlipidemia): Status: Acute (6) Pneumonia: Status: Acute (7) Bradycardia: Status: Acute Reason for Visit Reason for Visit: weakness Brief History: History as per HPI: Carlos Cooper is a 74 year old male with a past medical history of hypertension, hyperlipidemia, GERD, history of TIA who presents [facility] for dizziness. Patient tells me that he is originally from [place], he is a truck engine technician, he was dropping off a load that about at 10 AM, he suddenly felt dizzy, he tells me that he was driving at the time, he pulled over the side of the road, denies any blurry vision, no nausea, no vomiting, did have a slight headache, no neck pain, no paresthesias, no focal weakness, no facial droop, no slurring of his words, he tells me he he was able to drop all of his load, but continued to have dizziness, so he came to the ER for evaluation, initial head CT no acute bleed, patient was out of the window for tPA, he continues to complain of dizziness, unsteadiness on his feet, no nausea, no vomiting, currently he is NIH stroke scale is 2, CTA head and neck. Hospital Course Hospital Course Patient was admitted to the hospital for further evaluation and management. He did have a repeat episode of blurriness in his vision along with visual defects. Repeat CT head and MRI brain was not concerning for a new stroke. There is a concern that patient has been having TIA. During hospitalization he remained bradycardic. On review it seems patient has a history of hypertension and type 2 diabetes mellitus though he is noncompliant with his medications. He does not follow-up with a primary care provider. Extensive counseling was done with the patient and he was advised to continue taking his medications daily and to follow-up with the primary care provider every 3 to 4 months. He worked well with PT and OT along with speech therapy and continue to show improvement. Patient is traveling back to [place] with his spouse. He is advised not to drive till time has been cleared by his primary care provider. He is to check his blood pressure daily at home and maintain a blood pressure diary. He is to take losartan 25 mg oral daily with a goal blood pressure of 100-140 systolic. He should have a repeat A1c in 6 months. Physical Exam Const: COMMON NORMALS: no acute distress and patient oriented x3 HENMT: COMMON NORMALS: normocephalic HEAD & SCALP: normocephalic Neck/C-Spine: COMMON NORMALS: no JVD Resp: COMMON NORMALS: normal respiratory effort, No retractions, No use of accessory muscles and clear to auscultation bilaterally AUSCULTATION: clear to auscultation bilaterally Cardio: COMMON NORMALS: no JVD, regular rate, regular rhythm, S1 normal heart sound present and S2 normal heart sound present RATE: regular rate RHYTHM: regular rhythm HEART SOUNDS: S1 normal heart sound present and S2 normal heart sound present GI: COMMON NORMALS: Normal to inspection, nondistended, normoactive bowel sounds present, Soft to palpation and non-tender PALPATION: Yes Soft to palpation Extremity: COMMON NORMALS: no calf tenderness and no pedal edema Neuro: COMMON NORMALS: patient oriented x3, CN's II-XII intact bilaterally, moves all extremities and no focal motor deficits OTHER: Positive cerebellar signs Psych: COMMON NORMALS: mental status grossly normal Discharge Data Studies Completed and Pending Completed Studies During Hospitalization Category Date Time Status CT angio headneck* [id number] Stat Cat Scan 02/03/25 17:[address] head thrombolytic [id number] Stat Cat Scan 02/03/25 17:[address] head wo con* [id number] Stat Cat Scan 02/04/25 10:04 Completed CXRP [XR chest 1V portable [id number]] Stat Exams 02/03/25 18:06 Completed MR head wo con* [id number] Routine MRI 02/04/25 14:13 Completed CV. echo complete* [id number] Routine Ultrasound 02/04/25 14:23 Completed Pending at discharge Category Date Time Status Blood Culture Stat Lab 02/04/25 09:10 Results Sputum Culture and Gram Stain Stat Lab 02/04/25 09:00 Uncollected Radiology Impressions Head/Neck CTA 02/03/25 17:35 IMPRESSION: Moderate to severe stenosis involving the right P1 segment of the right DEMO COORDINATOR. There is a moderate stenosis involving the right distal DEMO COORDINATOR. IMPRESSION: 1. Moderate stenosis involving the distal right common carotid artery. 2. Mild stenosis involving the left distal common carotid artery. 3. Patchy ground-glass opacities present in the right upper lobe likely infectious or inflammatory in etiology. 4. Proximal esophageal wall thickening present. Clinical correlation for esophagitis recommended REFERENCES: NASCET CRITERIA. The degree of stenosis in the cervical segment of the internal carotid artery is based on NASCET criteria. Normal is no stenosis. Mild is less than 50% stenosis. Moderate is 50-69% stenosis. Severe is 70% to 99% stenosis. Total occlusion is no detectable patent lumen. Chest X-Ray 02/03/25 18:06 IMPRESSION: No acute findings. Head CT 02/04/25 10:04 IMPRESSION: 1. No acute intracranial hemorrhage or edema. 2. Stable small vessel ischemic disease and lacunar infarcts. 3. Intracranial carotid and vertebral artery atherosclerotic plaque. Head MRI 02/04/25 14:13 IMPRESSION: 1. No acute findings. 2. Chronic white matter ischemic changes noted Laboratory Results WBC 13.26 10^3/uL (3.29-11.43) H 02/05/25 05:51 RBC 4.59 10^6/uL (3.85-5.65) 02/05/25 05:51 Hgb 13.80 g/dL (11.27-16.99) 02/05/25 05:51 Hct 41.6 % (37-53) 02/05/25 05:51 MCV 90.6 fl (82-101) 02/05/25 05:51 MCH 30.1 pg (27-33) 02/05/25 05:51 MCHC 33.2 g/dL (30-55) 02/05/25 05:51 RDW 11.8 % (12.1-15.1) L 02/05/25 05:51 Plt Count 166 10^3/cmm (157-399) 02/05/25 05:51 MPV 9.9 fL (7.4-10.4) 02/05/25 05:51 Neut % (Auto) 68.6 % 02/05/25 05:51 Lymph % (Auto) 20.5 % 02/05/25 05:51 [place] % (Auto) 9.5 % 02/05/25 05:51 Eos % (Auto) 0.3 % 02/05/25 05:51 Baso % (Auto) 0.6 % 02/05/25 05:51 Neut # (Auto) 9.10 10^3/uL (1.8-7.7) H 02/05/25 05:51 Lymph # (Auto) 2.7 10^3/uL (0.8-4.8) 02/05/25 05:51 [place] # (Auto) 1.3 10^3/uL (0.2-0.9) H 02/05/25 05:51 Eos # (Auto) 0.0 10^3/uL (0.0-0.8) 02/05/25 05:51 Baso # (Auto) 0.1 10^3/uL (0.0-0.1) 02/05/25 05:51 Nucleated RBC % (auto) 0 % 02/05/25 05:51 Nucleated RBCs # 0.0 /100WBC 02/05/25 05:51 PT 13.10 SECONDS (12.1-14.9) 02/03/25 17:42 INR 0.93 (0.8-1.2) 02/03/25 17:42 APTT 24.8 SECONDS (23.9-36.7) 02/03/25 17:42 Sodium 140 mmol/L (136-145) 02/05/25 05:51 Potassium 3.6 mmol/L (3.5-5.1) 02/05/25 05:51 Chloride 104 mmol/L (98-107) 02/05/25 05:51 Carbon Dioxide 24 mmol/L (22-29) 02/05/25 05:51 Anion Gap 15.6 (5-19) 02/05/25 05:51 BUN 18 mg/dL (8-23) 02/05/25 05:51 Creatinine 0.8 mg/dL (0.7-1.2) 02/05/25 05:51 GFR Calculation Not Reportable 02/05/25 05:51 Glucose 116 mg/dL (65-115) H 02/05/25 05:51 POC Glucose 139 mg/dL (70-110) H 02/05/25 06:21 Estimat Average Glucose 197 02/03/25 17:42 Hemoglobin A1c 8.5 % (4.0-6.0) H 02/03/25 17:42 Calculated Osmolality 293 mOsm/kg (285-295) 02/05/25 05:51 Calcium 8.8 mg/dL (8.5-10.5) 02/05/25 05:51 Total Bilirubin 1.2 mg/dL (0.15-1.2) 02/05/25 05:51 AST 16 U/L (0-40) 02/05/25 05:51 ALT 8 U/L (0-41) 02/05/25 05:51 Alkaline Phosphatase 67 U/L (40-130) 02/05/25 05:51 Total Protein 6.6 g/dL (6.6-8.7) 02/05/25 05:51 Albumin 3.6 g/dL (3.5-5.2) 02/05/25 05:51 Globulin 3.0 g/dL (1.3-4.6) 02/05/25 05:51 Triglycerides 204 mg/dL (0-150) H 02/03/25 17:42 Cholesterol 204 mg/dL (0-200) H 02/03/25 17:42 LDL Cholesterol, Calc 117 mg/dL (50-129) 02/03/25 17:42 HDL Cholesterol 46 mg/dL (60-100) L 02/03/25 17:42 LDL/HDL Ratio 2.54 RATIO (0.00-3.22) 02/03/25 17:42 Cholesterol/HDL Ratio 4.43 mg/dL (1.0-5.00) 02/03/25 17:42 TSH 0.88 uIU/mL (0.27-4.20) 02/03/25 17:42 Urine Color Yellow (Yellow) 02/03/25 18:30 Urine Appearance Clear (CLEAR) 02/03/25 18:30 Urine pH 7 (5-7) 02/03/25 18:30 Ur Specific [place] 1.010 (1.005-1.030) 02/03/25 18:30 Urine Protein 1+ (Negative) H 02/03/25 18:30 Urine Glucose (UA) 1+ (Normal) H 02/03/25 18:30 Urine Ketones Negative (Negative) 02/03/25 18:30 Urine Blood Neg (Negative) 02/03/25 18:30 Urine Nitrate Negative (Negative) 02/03/25 18:30 Urine Bilirubin Neg (Negative) 02/03/25 18:30 Urine Urobilinogen Norm mg/dL (Negative) 02/03/25 18:30 Ur Leukocyte Esterase Negative (Negative) 02/03/25 18:30 Urine RBC 0-2 /hpf (0-2) 02/03/25 18:30 Urine WBC 11-20 /hpf (0-5) H 02/03/25 18:30 Ur Squamous Epith Cells 0-5 /hpf (0-5) 02/03/25 18:30 Amorphous Sediment Not Reportable 02/03/25 18:30 Urine Bacteria None seen /hpf (NONE) 02/03/25 18:30 Hyaline Casts 0.40 /lpf 02/03/25 18:30 Urine Opiates Screen Negative ng/mL (Negative) 02/03/25 18:30 Ur Barbiturates Screen Negative ng/mL (Negative) 02/03/25 18:30 Ur Phencyclidine Scrn Negative ng/mL (Negative) 02/03/25 18:30 Ur Amphetamines Screen Negative ng/mL (Negative) 02/03/25 18:30 U Benzodiazepines Scrn Negative ng/mL (Negative) 02/03/25 18:30 Urine Cocaine Screen Negative ng/mL (Negative) 02/03/25 18:30 U Marijuana (THC) Screen Negative ng/mL (Negative) 02/03/25 18:30 Vitals Last Vital Signs Temp 97.7 F 02/05/25 07:40 Pulse 48 L 02/05/25 07:40 Resp 17 02/05/25 07:40 BP 145/74 02/05/25 07:40 Pulse Ox 94 02/05/25 07:40 O2 Del Method Room Air 02/05/25 07:40 Discharge Plan Discharge Patient Disposition: Home Condition: Stable Prescriptions: New aspirin 81 mg Tablet,Delayed Release (Dr/Ec) 81 mg PO DAILY Qty: 30 0RF amoxicillin-pot clavulanate 875-125 mg Tablet 1 tab PO BID Qty: 10 0RF atorvastatin 40 mg Tablet 40 mg PO BEDTIME Qty: 30 0RF azithromycin 250 mg Tablet 500 mg PO DAILY Qty: 4 0RF clopidogrel 75 mg Tablet 75 mg PO DAILY Qty: 30 0RF losartan 25 mg tablet 25 mg PO DAILY Qty: 30 0RF Janumet 50-1,000 mg tablet 1 tab PO BID Qty: 60 0RF Discharge Orders: Discharge Order (Routine); Ordered 02/05/25 Ordered By: Carson Balderas Other Ambulatory Orders: DME: Cane/ Crutches (Order) Location: None Selected Ordered By: Carson Balderas Discharge Diet: Cardiac and Diabetic Discharge Activity: Resume usual activity and Increase activity as tolerated Patient Instructions: Amoxicillin/Clavulanate Potassium (By mouth), Azithromycin (By mouth), Clopidogrel (By mouth), Sitagliptin/Metformin (By mouth), Opioid Safety, Stroke Stoplight Activity Restrictions/Additional Instructions: Please follow up with your primary care provider within 1 week of hospital discharge. Check your blood pressure daily at home and maintain a blood pressure diary. Goal blood pressure is between 100-140 systolic. Take losartan 25 mg oral daily for high blood pressure. - Janumet is the medication which is supposed to take twice daily for diabetes. Take aspirin, Plavix and statin for TIA and strokelike symptoms. Augmentin and azithromycin of the antibiotic which is supposed to take for pneumonia for next 5 days. Discharge Attestations Time Spent in Discharge Care*: greater than 30 min Specific Discharge Activities: educating patient, educating and/or supporting family/caregiver, discussing with pcp/other providers, discussing with correctional case manager/social workers/dc planners, documenting/other paperwork and evaluating patient/reviewing data Status at Discharge: Cognitive status at discharge: cognitively intact , Behavioral status at discharge: cooperative , Functional status at discharge: uses cane/walker , Overall status at discharge: patient is back to baseline Quality Metrics Clinical Quality Measures [ No reported AMI, CVA or VTE this stay] Coding Level of Care Code 72040 Total time (in minutes) for Discharge: 60 Diagnoses Stroke-like symptoms R29.90 Dizziness R42 Type 2 diabetes mellitus E11.9 HTN (hypertension) with goal to be determined I10 HLD (hyperlipidemia) E78.5 Pneumonia J18.9 Bradycardia R00.1
[2025-02-05 11:19] LABS: Glucose Point of Care 243 mg/dL (70-110)
[2025-02-05 11:31] VITALS: BP 160/75; PULSE 53; RESP 18; TEMP 36.5; O2SAT 94
--- NOTE | 2025-02-05 11:40 | PC.OT ---
OT TREATMENT ATTEMPTED; PATIENT REPORTS THAT HE IS DISCHARGING TODAY AND DOES NOT WISH TO PARTICIPATE IN SKILLED TODAY
[2025-02-05 12:24] VITALS: BP 160/75; PULSE 53; RESP 18; TEMP 36.5; O2SAT 94
== END 2025-02-05 11:20 | disposition home or self-care (01) | DRG 69 ==
LOC: ER 20:18 → MEDSURG 20:21
PROVIDERS: Admitting Provider Family Medicine; Emergency Provider Emergency Medicine; Visit Provider Student in an Organized Health Care Education/Training Program
DX: G45.9 Transient cerebral ischemic attack, unspecified (principal); J18.9 Pneumonia, unspecified organism; I10 Essential (primary) hypertension; E78.5 Hyperlipidemia, unspecified; K21.9 Gastro-esophageal reflux disease without esophagitis; R00.1 Bradycardia, unspecified; E11.9 Type 2 diabetes mellitus without complications; Z91.148 Patient's other noncompliance with medication regimen for other reason
CPT/HCPCS: 36415; 36416; 70450; 70496; 70498; 70551; 71045; 80053; 80061; 80306; 81001; 82962; 83036; 84443; 85025; 85610; 85730; 87040; 93005; 93306; 94664; 96372; 96374; 97110; 97116; 97161; 97165; 99285; G0378; J1650; J1815; J2405; J2470; J7030; J8597; J9999; Q0144